=== PATIENT | female | born 1970 | race Caucasian/White ===

== ENCOUNTER 2017-07-24 21:07 | Emergency (ER) | payer MEDICARE, OTHER ==
[~2017-07-24] VITALS: Ht 175.3 cm; Wt 64.4 kg
[2017-07-24] MEDS ORDERED: HYDROCODONE-ACETAMIN 10-325 MG (21:49)
[2017-07-24] MEDS ORDERED: PAROXETINE HCL 40MG TABLET (21:49)
[2017-07-24] MEDS ORDERED: ALPRAZOLAM 1 MG TABLET (21:49)
--- NOTE | 2017-07-24 21:50 | NUR ---
DR YARELIS JENKINS MD AT BEDSIDE FOR MSE.
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
[2017-07-24] MEDS ORDERED: DICYCLOMINE HCL 10 MG/5 ML UDC LIQ PO ONE (22:15)
[2017-07-24] MEDS ORDERED: MAG HYDROX/AL HYDROX/SIMETH 30 ML LIQUID UDC PO ONE (22:15)
[2017-07-24] MEDS ORDERED: MAG HYDROX/AL HYDROX/SIMETH 30 ML LIQUID UDC ONE (22:16)
[2017-07-24] MEDS ORDERED: DICYCLOMINE HCL 10 MG/5 ML UDC LIQ ONE (22:16)
[2017-07-24] MEDS ORDERED: MORPHINE SULFATE 4 MG/1 ML DISP.SYRIN ONE (23:12)
[2017-07-24] MEDS ORDERED: MORPHINE SULFATE 4 MG/1 ML DISP.SYRIN IM ONE (23:15)
--- NOTE | 2017-07-24 23:22 | NUR ---
Patient discharged to home in stable conditon. Written and verbal after care instructions given. Patient verbalizes understanding of instructions. Pt ambulated from ER w/ steady gait, accompanied by . No distress noted.
[2017-07-24 23:25] VITALS: BP 136/62
== END 2017-07-24 23:26 | disposition home or self-care (01) ==
LOC: ER 21:11
DX: S90.32XA Contusion of left foot, initial encounter (principal); Z88.0 Allergy status to penicillin; Z79.891 Long term (current) use of opiate analgesic; Z79.899 Other long term (current) drug therapy; W19.XXXA Unspecified fall, initial encounter; Y93.89 Activity, other specified; Y92.89 Other specified places as the place of occurrence of the external cause; Y99.8 Other external cause status
CPT/HCPCS: 73630; A4663; J2270

== ENCOUNTER 2017-08-28 12:06 | Emergency (ER) | payer MEDICARE, MEDICAID ==
[~2017-08-28] VITALS: Ht 175.3 cm; Wt 63.5 kg
[~2017-08-28 12:06] MED LIST: ALPRAZOLAM 1 MG TABLET; HYDROCODONE-ACETAMIN 10-325 MG; PAROXETINE HCL 40MG TABLET
[2017-08-28] MEDS ORDERED: IBUPROFEN 600 MG TABLET PO ONE (12:45)
[2017-08-28] MEDS ORDERED: IBUPROFEN 600 MG TABLET ONE (12:47)
--- NOTE | 2017-08-28 12:55 | NUR ---
xray done, pt refused to wait, also refused osvaldo crespo md notified. pt eloped, took all bnelomngings, ambulated w/o diff.
== END 2017-08-28 12:58 | disposition left against medical advice (07) ==
LOC: ER 12:11
DX: M25.562 Pain in left knee (principal); Z88.0 Allergy status to penicillin; Z79.891 Long term (current) use of opiate analgesic; Z79.899 Other long term (current) drug therapy
CPT/HCPCS: A4663

== ENCOUNTER 2018-06-06 16:10 | Inpatient (IN) | payer MEDICARE, MEDICAID ==
[~2018-06-06] VITALS: Ht 175.3 cm; Wt 68.5 kg
[2018-06-06] MEDS ORDERED: Z GUARD REMEDY PASTE 57 GM TUBE TOP PRN (17:45)
[2018-06-06 17:55] VITALS: BP 160/90
[2018-06-06] MEDS ORDERED: PARO30TA4 PO (18:32)
[2018-06-06] MEDS ORDERED: PREG150C PO (18:32)
[2018-06-06] MEDS ORDERED: ASCO500T10 PO (18:32)
[2018-06-06] MEDS ORDERED: ZOLP10TA2 PO (18:32)
[2018-06-06] MEDS ORDERED: ASPI-612 PO (18:32)
[2018-06-06] MEDS ORDERED: HYDR-4354 PO (18:32)
[2018-06-06] MEDS ORDERED: ALPR1TAB7 PO (18:32)
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
[2018-06-06] MEDS ORDERED: Medication Not On Formulary EA (Zolpidem Tartrate (Ambien) 10 MG) PO SCH (19:45)
[2018-06-06] MEDS ORDERED: ALPRAZOLAM 0.5 MG TABLET PO PRN (19:45)
[2018-06-06 20:18] VITALS: BP 129/81
[2018-06-06] MEDS: DOCUSATE SODIUM 100 MG CAPSULE PO SCH (20:39)
[2018-06-06] MEDS: BISACODYL 5 MG TABLET.DR PO PRN (20:39)
[2018-06-06] MEDS: HYDROCODONE/APAP 10-325 MG TABLET PO PRN (20:39)
[2018-06-07] MEDS: HYDROCODONE/APAP 10-325 MG TABLET PO PRN ×3 (06:13→19:53)
[2018-06-07 06:15] VITALS: BP 130/80
--- NOTE | 2018-06-07 06:28 | NUR ---
Received pt in bed, AAO x 4 at beginning of shift. No acute distress noted. C/O 11/27 pain on left knee at surgical site, PRN pain medication given with good effect x 2. All needs attended to and met accordingly. All due medications given as ordered, tolerated well. Kept clean and dry, good pericare rendered. VSS. Slept well throughout shift. All safety measures and fall precautions maintained. Call light within reach. Will endorse accordingly. Addendum: 06/07/18 at 0629 by Larry Singh RN Pt is continent B&B. Assisted to bathroom x 2.
[2018-06-07 07:27] LABS: CARBON DIOXIDE 27 mmol/L (21-32); CHLORIDE 105 mmol/L (98-107); CREATININE 0.5 mg/dL (0.6-1.3); GLUCOSE 92 mg/dL (74-106); UREA NITROGEN, BLOOD 6 mg/dL (7-18)
[2018-06-07 07:42] LABS: BASOPHILS % (AUTO) 0.4 % (0.0-2.0); EOSINOPHILS # (AUTO) 0.3 K/uL (0.0-0.7); EOSINOPHILS % (AUTO) 3.6 % (0.0-7.0); HEMATOCRIT 29.7 % (31.2-41.9); HEMOGLOBIN 9.7 g/dL (10.9-14.3); LYMPHOCYTES # (AUTO) 1.4 K/uL (20.0-40.0); LYMPHOCYTES % (AUTO) 17.1 % (20.5-51.5); MEAN CORPUSCULAR HEMOGLOBIN 27.6 uug (24.7-32.8); MEAN CORPUSCULAR HGB CONC 33 g/dL (32.3-35.6); MEAN CORPUSCULAR VOLUME 84.1 fL (75.5-95.3); MONOCYTES # (AUTO) 0.7 K/uL (2.0-10.0); NEUTROPHILS # (AUTO) 5.6 K/uL (1.8-8.9); NEUTROPHILS % (AUTO) 69.9 % (38.5-71.5); PLATELET COUNT (AUTO) 291 K/uL (179-408); RED BLOOD CELL COUNT(AUTO) 3.53 MIL/uL (3.63-4.92)
[2018-06-07 08:00] VITALS: BP 135/79
[2018-06-07] MEDS: ASCORBIC ACID 500 MG TABLET PO SCH (08:33)
[2018-06-07] MEDS: ASPIRIN 325 MG TABLET PO SCH (08:33)
[2018-06-07] MEDS: PREGABALIN 50 MG CAPSULE PO SCH ×2 (08:33→16:35)
[2018-06-07] MEDS: DOCUSATE SODIUM 100 MG CAPSULE PO SCH ×2 (08:33→20:47)
[2018-06-07] MEDS ORDERED: PAROXETINE HCL 20 MG TABLET PO SCH (09:00)
[2018-06-07] MEDS ORDERED: Medication Not On Formulary EA (Paroxetine Hcl 60 MG) PO SCH (09:00)
--- NOTE | 2018-06-07 09:18 | NUR ---
Received pt in bed. A/OX4 able make her needs known. No acute distress noted. Denies CP or SOB. Pt. WBAT on bilateral lower extremities. All due medications given as ordered and tolerated well. Pt. scheduled for PT/OT eval this AM. Lt. knee surgical incision noted with 22 lucio, dressing changed and covered with trudy wrap. RFA with 24G PIV intact and patent. Pt. own medications documented, signed by pt then sent to pharmacy for safekeeping. Safety measures maintained. Kept pt. clean and dry. No s/sx of bleeding noted, currently on ASA. Call light and all frequently used items in place. Will continue to monitor accordingly.
--- NOTE | 2018-06-07 09:49 | NUR ---
Pt. requested to D/C PIV on RFA. Dc PIV per request and 2/2 non-usage, pt. tolerated procedure well with no IV complication noted.
[2018-06-07] MEDS ORDERED: POTASSIUM CHLORIDE 20 MEQ TAB.PRT.SR PO ONE (10:45)
--- NOTE | 2018-06-07 11:36 | NUR ---
Pt informed nursing staff of buying cigarette outside of the hospital. Educated pt. on hospital policy regarding smoking in the facility. Smoking cessation education provided to pt. Pt. verbalized clear understanding with no further concerns.
[2018-06-07] MEDS: PAROXETINE HCL 20 MG TABLET PO SCH (13:50)
[2018-06-07 16:43] VITALS: BP 153/96
[2018-06-07 18:15] VITALS: BP 121/71
--- NOTE | 2018-06-07 18:27 | NUR ---
End of shift: All due medications administered as ordered and tolerated well. No new skin condition noted. Kept pt. clean and dry. Skin care rendered. LT. knee surgical incision covered with trudy wrap remain C/D/I. Pt. on menstruation cycle, OB pads provided as needed. Pain well manage during this shift. Pt. seen and examine by Dr. Moore this shift. Call light and all frequently used items within pt. reach. Will endorse to oncoming shift accordingly.
--- NOTE | 2018-06-07 20:10 | NUR ---
Received pt in bed, AAO x 4 watching television and on her phone. No acute distress noted. Verbally responsive and able to make needs known. Denies pain or discomfort at this time. All safety measures and fall precautions maintained. Call light and all personal belongings within reach. Will continue to monitor.
[2018-06-07 20:31] VITALS: BP 143/87
[2018-06-07] MEDS: BISACODYL 5 MG TABLET.DR PO PRN (20:47)
[2018-06-08] MEDS: OXYCODONE HCL 5 MG TABLET PO PRN ×3 (01:49→20:58)
--- NOTE | 2018-06-08 02:05 | NUR ---
Pt requested to ambulate around accompanied by RN. Ambulatory with cane and standby assistance, steady gait. Upon exiting unit, pt requested to smoke. RN educated pt on policy and procedure of hospital that this is a smoke-free hospital. Pt verbalized understanding, stating "I was promised this earlier. I've been waiting to smoke just 1 (one) cigarette. At other hospitals they let me smoke." Pt began to state that AM RN had given her pamphlet regarding smoking cessation. Reinforced smoke-free policy. Pt stated "there is no policy that says a patient can't smoke". Continued to reinforce smoke-free policy. Upon re-entering the unit, patient was waiting to be taken outside to smoke, stating she still wanted to smoke. Attempted to notify the plant operator/shift supervisor when patient verbalized that she "changed her mind and wanted to go to sleep". Accompanied patient back into room. Pt requesting sleeping pill. Informed patient that PRN Oxycontin was just given at 0150 for pain and cannot give together with sleeping pill due to adverse side effects. Verbalized understanding and agreed to wait. Will continue to monitor. Patient provided with printout of hospital smoke-free policy. Verbalized understanding. Call light within reach. Will continue to monitor. Addendum: 06/08/18 at 0311 by Larry Singh RN Addition: Notified plant operator/shift supervisor and made aware of pt attempting to smoke and the handing of the print out of hospital smoking policy.
[2018-06-08] MEDS: ZOLPIDEM 5 MG TABLET PO PRN ×2 (02:37→22:36)
[2018-06-08 05:03] VITALS: BP 135/76
[2018-06-08] MEDS: HYDROCODONE/APAP 10-325 MG TABLET PO PRN ×2 (07:40→13:28)
[2018-06-08] MEDS: DOCUSATE SODIUM 100 MG CAPSULE PO SCH ×2 (09:00→20:57)
[2018-06-08] MEDS: PREGABALIN 50 MG CAPSULE PO SCH ×2 (09:00→16:53)
[2018-06-08] MEDS: ASCORBIC ACID 500 MG TABLET PO SCH (09:00)
--- NOTE | 2018-06-08 09:00 | NUR ---
Received pt in bed. A/OX4 able make her needs known. No acute distress noted. Denies CP or SOB. Pt. WBAT on bilateral lower extremities. All due medications given as ordered and tolerated well. Lt. knee surgical incision noted with dressing covered with trudy wrap. Safety measures maintained. Kept pt. clean and dry. No s/sx of bleeding noted, currently on ASA. Call light and all frequently used items in place. Will continue to monitor accordingly.
[2018-06-08] MEDS: ASPIRIN 325 MG TABLET PO SCH (09:01)
[2018-06-08] MEDS: PAROXETINE HCL 20 MG TABLET PO SCH (09:01)
--- NOTE | 2018-06-08 09:30 | NUR ---
SMOOTH STUCCO RESURFACER notified RN that pt. room smelled like cigarettes smoke. Pt. seen promptly and addressed issue. Upon entering pt. room, pt. was seen standing by window open and knock the screen off, unable to visually see lit up cigarette at the time, but pt. room smelled like cigarette smoke. Reinforced facility has a smoke-free policy and re-offered smoking cessation assistance but pt. refused. Pt. also had discussion with security staff to enforce policy. Pt. denied smoking in room and refused to give up cigarette. Will continue to monitor accordingly.
[2018-06-08 09:43] VITALS: BP 116/75
--- NOTE | 2018-06-08 10:01 | NUR ---
Approached pt. in a calm manner with 2 staff witness. Pt. amenable to surrender cigarettes and repair operator after further discussion. Pt. verbalized clear understanding of hospital policy regarding smoking.
--- NOTE | 2018-06-08 10:51 | NUR ---
ENVIRONMENTAL PLANNER offered pt. shower as witnessed. Pt. refused at this time. Stated "I'll shower tomorrow."
[2018-06-08 16:25] VITALS: BP 109/73
--- NOTE | 2018-06-08 18:03 | NUR ---
End of shift: All due medications administered as ordered and tolerated well. Kept pt. clean and dry. Skin care rendered. LT. knee surgical incision covered with trudy wrap remain C/D/I. Pt. still on menstruation cycle, OB pads provided as needed. Call light and all frequently used items within pt. reach. Will endorse to oncoming shift accordingly.
--- NOTE | 2018-06-08 19:30 | NUR ---
Nurse knocked at patient door, and requested to leave per patient because she was on the phone. Assessed patient to safe and not in any danger. Will return to patient room in 20 minutes.
--- NOTE | 2018-06-08 20:05 | NUR ---
Patient asses to be alert and oriented x 4. C/O pain and fear of infection in left knee. Requesting nurse to remove and clean knee because, "no one has done it since I got here." Informed patient that she would tolerate the procedure better with pain medication, so she stated she wait. Patient also stated that she has been having golf ball sized clots that are accompanying her period. Nurse can not confirm that statement at this time. Will assess. Patient also states that large bag of vitamins is missing. Will asses if bag is in her possession. Call light and frequently used items within reach. Will continue to monitor.
[2018-06-08] MEDS: BISACODYL 5 MG TABLET.DR PO PRN (21:04)
[2018-06-08 21:35] VITALS: BP 144/82
--- NOTE | 2018-06-08 22:39 | NUR ---
Left knee dressing changed per orders. Patient feared that she had an infection in the lucio. Dressing removed and skin around lucio found to warm to the touch, but lucio intact with skin dry and pink. Photograph taken of lucio and placed into chart. Patient requesting some sort of cleaning solution or ointment to be placed on lucio. Will put in for a wound care consult. [place] covered and gauze. replaced. Will continue to monitor.
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
[2018-06-09] MEDS: OXYCODONE HCL 5 MG TABLET PO PRN ×3 (05:12→19:35)
[2018-06-09 05:16] VITALS: BP 128/75
--- NOTE | 2018-06-09 07:05 | NUR ---
Patient slept intermittently throughout the night. All due medications administered as ordered and tolerated well. Kept pt. clean and dry. Skin care rendered. LT. knee surgical incision covered with trudy wrap remain C/D/I. Pt. On menstruation cycle, OB pads needed. Call light and all frequently used items within pt. reach. Will endorse to oncoming shift accordingly.
[2018-06-09 07:30] VITALS: BP 147/80
[2018-06-09 08:12] LABS: BASOPHILS % (AUTO) 0.3 % (0.0-2.0); EOSINOPHILS # (AUTO) 0.2 K/uL (0.0-0.7); EOSINOPHILS % (AUTO) 2.4 % (0.0-7.0); HEMATOCRIT 25.5 % (31.2-41.9); HEMOGLOBIN 8.3 g/dL (10.9-14.3); LYMPHOCYTES # (AUTO) 1.4 K/uL (20.0-40.0); LYMPHOCYTES % (AUTO) 18.4 % (20.5-51.5); MEAN CORPUSCULAR HEMOGLOBIN 27.7 uug (24.7-32.8); MEAN CORPUSCULAR HGB CONC 33 g/dL (32.3-35.6); MEAN CORPUSCULAR VOLUME 84.9 fL (75.5-95.3); MONOCYTES # (AUTO) 0.8 K/uL (2.0-10.0); NEUTROPHILS # (AUTO) 5.3 K/uL (1.8-8.9); NEUTROPHILS % (AUTO) 68.9 % (38.5-71.5); PLATELET COUNT (AUTO) 325 K/uL (179-408); WHITE BLOOD COUNT (AUTO) 7.6 K/uL (3.8-11.8)
[2018-06-09 08:21] LABS: CARBON DIOXIDE 30 mmol/L (21-32); CHLORIDE 103 mmol/L (98-107); POTASSIUM 3.9 mmol/L (3.5-5.1)
[2018-06-09 08:22] LABS: CREATININE 0.5 mg/dL (0.6-1.3); GLUCOSE 91 mg/dL (74-106); UREA NITROGEN, BLOOD 5 mg/dL (7-18)
[2018-06-09] MEDS: DOCUSATE SODIUM 100 MG CAPSULE PO SCH ×2 (08:25→21:07)
[2018-06-09] MEDS: ASCORBIC ACID 500 MG TABLET PO SCH (08:25)
[2018-06-09] MEDS: HYDROCODONE/APAP 10-325 MG TABLET PO PRN (08:25)
[2018-06-09] MEDS: PREGABALIN 50 MG CAPSULE PO SCH ×2 (08:25→18:06)
[2018-06-09] MEDS: ASPIRIN 325 MG TABLET PO SCH (08:26)
[2018-06-09] MEDS: PAROXETINE HCL 20 MG TABLET PO SCH (08:26)
--- NOTE | 2018-06-09 09:27 | NUR ---
Patient noted laying in bed crying hysterically, when asked what was wrong, patients states, "It's Personal", [place] given for pain in left knee 09/27, no signs of distress noted, took AM medications, Refused aspirin, call light in reach, bed locked and in lowest position, all needs met
[2018-06-09] MEDS ORDERED: ASPIRIN/ACETAMINOPHEN/CAFFEINE TABLET PO PRN (09:30)
--- NOTE | 2018-06-09 13:20 | NUR ---
INTERDISCIPLINARY TEAM CONFERENCE
--- NOTE | 2018-06-09 14:27 | NUR ---
WOUND CARE CONSULT: PT PRESENTS WITH LEFT KNEE INCISION (CLOSED) WITH CHAU. EDEMA NOTED. NO SIGN OF INFECTION NOTED, NO DRAINAGE. DEFER TO SURGEON FOR SURGICAL SITE. WILL SEE PRN. PT CONTINENT AND INDEPENDENT WITH BED MOBILITY.
[2018-06-09 16:29] VITALS: BP 122/71
--- NOTE | 2018-06-09 18:51 | NUR ---
PRN pain medication given multiple times this shift for left knee pain, dressing changed and intact, instructed by wound care to use bordered gauze dressing for knee instead of surgical dressing, no changes this shift
[2018-06-09 19:25] VITALS: BP 132/80
--- NOTE | 2018-06-09 21:14 | NUR ---
Patient received in bed resting. Patient asses to be alert and oriented x 4. C/O pain, will medicate. Side rails up for safety. Call light and frequently used items within reach. Will continue to monitor.
[2018-06-10] MEDS: ZOLPIDEM 5 MG TABLET PO PRN (00:29)
[2018-06-10] MEDS: OXYCODONE HCL 5 MG TABLET PO PRN ×3 (00:30→15:39)
--- NOTE | 2018-06-10 00:37 | NUR ---
Patient requested shower at 2300. RN available for stand by assisted. Left knee dressing covered. Medicated for pain after shower. Will continue to monitor.
[2018-06-10 04:45] VITALS: BP 105/70
--- NOTE | 2018-06-10 06:44 | NUR ---
Patient slept intermittently throughout the night. All due medications given-tolerated well. PRN oxycodone for pain management 0630. Call light and all frequently used items within reach. Side rails up bilaterally for safety. Will endorse to oncoming shift accordingly.
[2018-06-10 08:00] VITALS: BP 92/53
[2018-06-10] MEDS: DOCUSATE SODIUM 100 MG CAPSULE PO SCH (08:27)
[2018-06-10] MEDS: PREGABALIN 50 MG CAPSULE PO SCH ×2 (08:27→16:20)
[2018-06-10] MEDS: ASCORBIC ACID 500 MG TABLET PO SCH (08:27)
[2018-06-10] MEDS: ASPIRIN 325 MG TABLET PO SCH (08:27)
[2018-06-10] MEDS: PAROXETINE HCL 20 MG TABLET PO SCH (08:28)
[2018-06-10] MEDS: HYDROCODONE/APAP 10-325 MG TABLET PO PRN ×2 (08:33→19:01)
--- NOTE | 2018-06-10 10:16 | NUR ---
Patient noted standing up in restroom brushing teeth, complaints of left knee pain 8/10, prn [place] given prior to therapy, no signs of distress noted, call light in reach, all AM medications taken, all needs met
--- NOTE | 2018-06-10 13:20 | NUR ---
PATIENT DISAPPEARED OFF UNIT AT THIS TIME, SECURITY INFORMED AND STATES THAT PATIENT LEFT OUT OF THE FRONT OF THE BUILDING CLAIMING TO BE "WATCHING CARS" ON [address]. (MYSELF) THIS NURSE PHYSICALLY CHECKED [address] WITH OUT LOCATING PATIENT. COMPREHENSIVE OPHTHALMOLOGIST DEONTE AND SALES RECRUITER FRANK INFORMED OF FINDINGS. AUTO SLIP COVER INSTALLER MADE EDER AWARE
--- NOTE | 2018-06-10 15:33 | NUR ---
Social work note: woodworker helper was made aware that patient had left ARU and was nowhere to be found for 2 hours. woodworker helper also informed that prior to this incident, patient had left unit one other time and had been caught smoking cigarettes in her room. Due to non-compliant behavior and patient being physically stable, patient is being scheduled for discharge soon and geriatric social work professor was asked to consult with patient. woodworker helper arrived to patient room and introduced self and role. woodworker helper provided patient with supportive counseling. woodworker helper then inquired where patient went for the 2 hours she was missing. Patient adamantly denied that she left the unit stating "I was in the bathroom". woodworker helper again stated that she was seen on camera and by security guards leaving the facility. Again, patient adamantly denied and began to get irritable requesting to speak to a parts department supervisor. woodworker helper left room and returned to patient room with ARU director, Trey. With Trey present, patient was again confronted with leaving the unit and denied. woodworker helper then informed patient that she would be discharged back to her address listed on face sheet [[address] [place] [address], [place] [address]] and provided with the appropriate support [i.e. home health]. Patient denied living at address, despite EMR showing she had been discharged to location during previous admissions. Patient then stated that she is "homeless". woodworker helper asked if patient had support. Patient stated she has a caregiver, who is her sister, but that she 3 weeks ago, but then stated that she will "call her". woodworker helper then informed patient that she could be assisted with homeless resources and provided [place] [facility] locations. Patient became very upset and began crying. Patient is perceived as manipulative. woodworker helper and ARU director, Trey, left the patient's room. woodworker helper and Trey then consulted with social welfare research worker, Marina, on case. Marina and this residential mortgage underwriter returned to patient's room. Upon arrival to patient room, patient was in bathroom and crying uncontrollably stating she was "menstruating" and needed a sanitary napkin. Patient was provided with sanitary napkin by RN. Patient remained in bathroom for approximately 10 minutes before coming out. Once out of bathroom, patient, geriatric social work professor, and Marina had conversation about patient leaving hospital. Patient was informed that this was not allowed and patient stated "I won't do it again" and became tearful. Patient was asked if she would accept placement at a SNF. Patient agreed. manager public, Akil, faxed SNF inquires to [facility] [phone]; handyperson: MALLORY]SNF and [facility] [phone]; handyperson: Irene]. woodworker helper and piano case and bench assembler are currently awaiting response.
--- NOTE | 2018-06-10 21:47 | NUR ---
patient supposed to discharge to [facility] but patient very hesitant to leave. ambulance is already to pick her up but keep on insisting she needs a written prescription of her pain medications. Although how much explaining and telling her that the facility can get her meds there still she wants a written prescription from the doctor. Dr Moore was paged and he said he already faxed the prescriptions electronically. Dr Moore also explained it to her that she can her pain meds in the facility. Ambulance left. Danita, nursing quality control supervisor made aware of the situation. Talked to the patient regarding about her discharge to the facility patient says she dont want to go there. Explained to patient she is already discharge from ARU, she said she is not going there, she said either you can call the police or kick me out of here. Patient was told if she is not going to [facility] she going to be AMA (against medical advice) Patient said ok. But still patient refuse to leave. Security called and will escort patient outside. Belongings sent with the patient. Requested a copy of her discharge summary.
== END 2018-06-10 21:30 | disposition left against medical advice (07) | DRG 561 ==
PROVIDERS: ADMIT Physical Medicine & Rehabilitation Pain Medicine; ATTEND Physical Medicine & Rehabilitation Pain Medicine
DX: Z47.1 Aftercare following joint replacement surgery (principal); Z96.652 Presence of left artificial knee joint; M79.7 Fibromyalgia; G89.4 Chronic pain syndrome; F32.9 Major depressive disorder, single episode, unspecified; E87.6 Hypokalemia; D63.8 Anemia in other chronic diseases classified elsewhere; Z88.0 Allergy status to penicillin
CPT/HCPCS: 36415; 85025; 92526; 92610; 97110; 97112; 97116; 97165; 97530; 97535; A4663; A9150

== ENCOUNTER 2023-07-10 05:46 | Emergency (ER) | payer MEDICARE, MEDICAID ==
[~2023-07-10] VITALS: Ht 175.3 cm; Wt 70.3 kg
[~2023-07-10 05:46] MED LIST changes: +ALPR1TAB7 PO; +ASCO500T10 PO; +ASPI-612 PO; +HYDR-4354 PO; +PARO30TA4 PO; +PREG150C PO; +ZOLP10TA2 PO
[2023-07-10] MEDS ORDERED: KETOROLAC TROMETHAMINE 30 MG INJ ONE ×2 (07:08→08:45)
[2023-07-10] MEDS: KETOROLAC TROMETHAMINE 30 MG INJ IM ONE (07:13)
[2023-07-10] MEDS ORDERED: LIDOCAINE 2%-EPI 1:100,000 20 ML VIAL ONE (08:47)
[2023-07-10] MEDS: LIDOCAINE 2%-EPI 1:100,000 20 ML VIAL IJ ONE (09:00)
[2023-07-10 10:50] VITALS: BP 130/80; TEMP 98; O2SAT 99
[2023-07-10 13:45] LABS: TOTAL VOLUME,BODY FLUID 12 mL
[2023-07-10 13:47] LABS: WBC, BODY FLUID 6 /cu. mm (0-200/cu.mm)
[2023-07-10 13:48] LABS: MONOCYTES,BODY FLUID 0 %; POLYNUCLEAR, BODY FLUID 1 % (0-25 %)
== END 2023-07-10 10:50 | disposition home or self-care (01) ==
LOC: ER 05:56
DX: S80.02XA Contusion of left knee, initial encounter (principal); J44.9 Chronic obstructive pulmonary disease, unspecified; Z98.890 Other specified postprocedural states; Z79.82 Long term (current) use of aspirin; Z79.899 Other long term (current) drug therapy; Z88.0 Allergy status to penicillin; W18.39XA Other fall on same level, initial encounter; Y93.89 Activity, other specified; Y92.89 Other specified places as the place of occurrence of the external cause; Y99.8 Other external cause status
CPT/HCPCS: 99284; 83986; 36415; 73560; 96372; J1885; A4606; A4663